=== PATIENT | female | born 1990 | race Two or more races ===

== ENCOUNTER 2021-12-07 13:38 | Inpatient (IN) | payer BC, SELFPAY ==
[2021-12-07] VITALS (46 sets, daily range): BP systolic 92–124; BP diastolic 55–101; PULSE 48–74; RESP 16–20; TEMP 35.7–36.8; O2SAT 96–100; BMI 36.6
--- NOTE | 2021-12-07 11:05 | P.PNAN_ITS ---
Anes - Initial Pre Proc Eval Procedure: Operation Date: 12/07/21 07:30 Proposed Procedures p Repeat Section - Daniela Botello MD Date/Time: 12/07/21 11:05 Surgeon: Daniela Botello MD Pre Op Diagnosis: C/S Patient Data Age: 31 Gender: F Height: Weight: Allergies Allergy/AdvReac Type Severity Reaction Status Date / Time clindamycin Allergy Hives Verified 11/03/21 12:41 Home Medications Medication Instructions Recorded Confirmed Type PNV cmb#95-ferrous fumarate-FA 1 tablet PO DAILY 11/03/21 11/03/21 History [] Patient hx anesthesia problems: none Family hx anesthesia problems: none Results Review: All pre-operative results and documents have been reviewed as part of the pre-operative evaluation. [facility] Family History Family History Sibling Autism Mother Diabetes mellitus Social History Social History Smoking status: Never smoker Substance use: never Spiritual care concerns: No Anes - Eval Final PreProcedure Day of Procedure 12/07/21 11:05 Patient weight: normal Heart: regular rate and rhythm Lungs: clear to auscultation and normal air movement Airway: Mallampati scale class II Neurological: alert and oriented Last oral intake: >/= 8 hours ASA classification: II Emergent: no Anesthetic plan: proceed Anesthesia type and monitoring: regional spinal and standard monitoring Results Review: All pre-operative results and documents have been reviewed as part of the pre-operative evaluation. Informed Consent: The patient's anesthetic plan and its attendant risks and benefits were discussed with the patient/family/POA. Questions were solicited and answers provided to the satisfaction of the patient/family/POA.
--- OUTSIDE RECORDS SUMMARY | 2021-12-07 13:48 | XMS_ITS | Encounter Summary ---
:1990 Author Care Team Providers Name Role Phone Daniela Botello MD Primary Care Provider [phone] Reason for Visit OB visit Assessment and Plan 1. Routine care Discussion Note: None recorded.Patient educational handouts: No information available. Plan of Care Reminders Provider Appointments Well on or around Dolores nelson, [facility] 06/19/2022 CNM Lab None ? ? recorded. Referral None ? ? recorded. Procedures None ? ? recorded. Surgeries None ? ? recorded. Imaging None ? ? recorded. Medications Name Start Date ? ? ? Medications Administered None recorded. Vitals Height Weight BMI Blood Pressure 5 ft 5 in 202 lbs 33.6 kg/m2 121/67 mm[Hg] Results Lab Results None recorded. Allergies Code Code System Name Reaction Severity Onset 7582 RxNorm Clindamycin ? ? ? Problems Name Status Onset Date Source ? Active 08/07/2021 ? Sickle Cell Trait Active ? ? Ultrasound Scan Abnormal Active ? ? History of Section Active ? ? Procedures Date Name
--- OUTSIDE RECORDS SUMMARY | 2021-12-07 13:48 | XMS_ITS | Encounter Summary ---
:1990 Author Care Team Providers Name Role Phone Daniela Botello MD Primary Care Provider [phone] Reason for Visit OB visit 38w3d Assessment and Plan 1. Routine care Discussion [...] BMI Blood Pressure 5 ft 5 in 217 lbs 36.1 kg/m2 122/74 mm[Hg] Results Lab Results None recorded. Allergies Code Code System Name Reaction Severity Onset 2581 RxNorm Clindamycin ? ? ? Problems Name Status Onset Date Source ? Active 08/07/2021 ? Sickle Cell Trait Active ? ? Ultrasound Scan Abnormal Active ? ? History of Section Active ? ? Procedures
--- OUTSIDE RECORDS SUMMARY | 2021-12-07 13:48 | XMS_ITS | Encounter Summary ---
:1990 Author Care Team Providers Name Role Phone Daniela Botello MD Primary Care Provider [phone] Reason for Visit None recorded. Assessment and Plan 1. condition affecting obs tetrical care of mother ? US, obstetric, follow-up 2. Gestation period, 27 weeks Discussion Note: None recorded.Patient educational handouts: No information available. Plan of Care Reminders Provider Appointments Well on or around Dolores nelson CNM [facility] 06/19/2022 Lab None ? ? recorded. Referral None ? ? recorded. Procedures None ? ? recorded. Surgeries None ? ? recorded. Imaging US, 09/07/2021 [place] [facility], Follow-up Medications Name Start Date ? ? ? Medications Administered None recorded. Vitals None recorded. Results Lab Results None recorded. Allergies Code Code System Name Reaction Severity Onset 5564 RxNorm Clindamycin ? ? ? Problems Name Status Onset Date Source ? Active 08/07/2021 ? Sickle Cell Trait Active ? ? Ultrasound Scan Abnormal Active ? ? History of Section
--- OUTSIDE RECORDS SUMMARY | 2021-12-07 13:48 | XMS_ITS | Encounter Summary ---
:1990 Author Care Team Providers Name Role Phone Daniela Botello MD Primary Care Provider [phone] Reason for Visit OB visit Assessment and Plan 1. History of section 2. Routine care Discussion Note: None recorded.Patient educational [...] BMI Blood Pressure 5 ft 5 in 213 lbs 35.4 kg/m2 117/66 mm[Hg] Results Lab Results None recorded. Allergies Code Code System Name Reaction Severity Onset 2581 RxNorm Clindamycin ? ? ? Problems Name Status Onset Date Source ? Active 08/07/2021 ? Sickle Cell Trait Active ? ? Ultrasound Scan Abnormal Active ? ? History of Section Active ? ?
--- OUTSIDE RECORDS SUMMARY | 2021-12-07 13:48 | XMS_ITS | Encounter Summary ---
:1990 Author Care Team Providers Name Role Phone Daniela Botello MD Primary Care Provider [phone] Reason for Visit None recorded. Assessment and Plan 1. condition affecting obs tetrical care of mother ? US, obstetric, follow-up Discussion Note: None recorded.Patient educational handouts: No information available. Plan of Care Reminders Provider Appointments Well on or around Dolores nelson CNM [facility] 06/19/2022 Lab None ? ? recorded. Referral None ? ? recorded. Procedures None ? ? recorded. Surgeries None ? ? recorded. Imaging US, 11/22/2021 [place] [facility], Follow-up Medications Name Start Date ? ? ? Medications Administered None recorded. Vitals None recorded. Results Lab Results None recorded. Allergies Code Code System Name Reaction Severity Onset 2582 RxNorm Clindamycin ? ? ? Problems Name Status Onset Date Source ? Active 08/07/2021 ? Sickle Cell Trait Active ? ? Ultrasound Scan Abnormal Active ? ? History of Section Active ? ? Procedures
--- OUTSIDE RECORDS SUMMARY | 2021-12-07 13:48 | XMS_ITS | Encounter Summary ---
:1990 Author Care Team Providers Name Role Phone Daniela Botello MD Primary Care Provider [phone] Reason for Visit OB visit OB [id number] EDC 12/03/2021 LMP 02/26/21 Assessment and Plan Assessment Note Patient is _33__weeks . Dis cussed plan. 1. Routine care Discussion Note: None recorded.Patient educational handouts: No information available. Plan of Care Reminders Provider Appointments Well on or around Dolores Yessica nelson [facility] 06/19/2022 CNM Lab None ? ? recorded. Referral None ? ? recorded. Procedures None ? ? recorded. Surgeries None ? ? recorded. Imaging None ? ? recorded. Medications Name Start Date ? ? ? Medications Administered None recorded. Vitals Height Weight BMI Blood Pressure 5 ft 5 in 207 lbs 34.4 kg/m2 123/73 mm[Hg] Results Lab Results None recorded. Allergies Code Code System Name Reaction Severity Onset 5059 RxNorm Clindamycin ? ? ? Problems Name Status Onset Date Source ? Active 08/07/2021 ? Sickle Cell Trait Active ?
[2021-12-07] MEDS: LACTATED RINGERS 250 ML 999 ML IVPB (14:50)
--- NOTE | 2021-12-07 14:53 | LDADM ---
This patient, Shelly Chu, was admitted to Labor/Delivery/Recovery 119 on 12/07/21 at 13:38. Plans for labor, pain management and were discussed with patient. Patient/family oriented to hospital policies and general routines including ID bracelet, bed and alarms, visiting hours, pain management, procedures, bathroom and other care routines, personal items, smoking policy, room service/diet and guest tray routines, infant security routines, and visiting hours. Patient/Family are encouraged to report perceived risks to care and to ask questions if they do not understand what they are told or what they should do. See OBIX for further documentation.
[2021-12-07 14:57] LABS: Basophils Percent Auto 0.2 % (0.2-1.2); Eosinophils Absolute Auto 0.1 K/mm3 (0-0.3); Eosinophils Percent Auto 0.9 % (0-4.4); Hematocrit 38.3 % (37.0-47.0); Hemoglobin 12.9 g/dL (12.0-15.0); Immature Granulocyte Absolute 0.08 K/mm3 (0.00-0.031); Immature Granulocyte Percent A 0.9 % (0-0.5); Lymphocytes Absolute Auto 1.68 K/mm3 (0.9-3.2); Lymphocytes Percent Auto 18.3 % (18.3-44.2); Mean Corpuscular HGB Conc 33.7 g/dl (32-36); Mean Corpuscular Hemoglobin 26.8 pg (26-34); Mean Corpuscular Volume 79.5 fl (80-100); Mean Platelet Volume 10.8 fl (7.4-10.4); Monocytes Absolute Auto 0.5 K/mm3 (0.1-0.6); Monocytes Percent Auto 5.7 % (2.6-8.5); Neutrophils Absolute Auto 6.8 K/mm3 (1.3-6.7); Platelet Count Result 232 k/mm3 (150-375); Red Blood Count 4.82 M/mm3 (4.2-5.4); Red Cell Distribution Width 13.6 % (11.5-14.5); White Blood Count 9.2 K/mm3 (4.5-10.0)
--- NOTE | 2021-12-07 16:05 | PM.IMHP ---
H&P: HPI History of Present Illness Date/Time: 12/07/21 16:05 Chief Complaint: R CS Narrative: Shelly is a 31yo at 40.4 for repeat CS. had wanted to TOLAC but cervix unfavorable still. complicated only by EIF present and pt carries sickle cell trait. Review of Systems Review of Systems: All systems reviewed & are unremarkable except as noted in HPI and below PMFSH Family History Family History Sibling Autism Mother Diabetes mellitus Social History Social History Smoking status: Never smoker Substance use: never Spiritual care concerns: No Meds Home Medications and Allergies Home Medications Medication Instructions Recorded Confirmed Type PNV cmb#95-ferrous fumarate-FA 1 tablet PO DAILY 11/03/21 11/03/21 History [] Allergies Allergy/AdvReac Type Severity Reaction Status Date / Time clindamycin Allergy Hives Verified 11/03/21 12:41 Vital Signs Vital Signs - 24 hr 12/07/21 14:50 12/07/21 15:01 Temperature 98.3 F Pulse Rate 69 Respiratory Rate 20 Blood Pressure 115/56 L Exam Const: General: no acute distress Resp: Effort & Inspection: normal respiratory effort Auscultation: clear to auscultation bilaterally Cardio: Rate: regular rate Rhythm: regular rhythm GI: GI Palp: Yes Soft to palpation Extrem: General: normal to inspection H&P: Results Labs Labs: Short CBC 12/07/21 Range/Units 14:49 WBC 9.2 (4.5-10.0) K/mm3 Hgb 12.9 (12.0-15.0) g/dL Hct 38.3 (37.0-47.0) % Plt Count 232 (150-375) k/mm3 Assessment and Plan Assessment and plan (1) History of delivery: Code(s): Z98.891 - History of uterine scar from previous surgery Status: Acute Additional Plan Plan Repeat CS Discussed RBA, pt consented, all questions answered. will proceed.
--- NOTE | 2021-12-07 16:07 | WPDHPUPDATE1 ---
History and Physical Update Update Date/Time: 12/07/21 16:07 History and Physical has been reviewed, including an updated exam of the patient. There are NO changes in the patient's condition. Risks, benefits, and alternatives have been discussed and questions answered. Patient agrees to proceed with procedure.
[2021-12-07] MEDS: ceFAZolin 2 GM/D5W 50 ML 2 GM/50 ML BAG IVPB (16:27)
--- NOTE | 2021-12-07 17:20 | PM.OBPRVD ---
OB - Delivery Note Procedure Delivery date: 12/07/21 Procedure: Procedures Operation Date: 12/07/21 07:30 <No data on this case meets the specified criteria> repeat low transverse section events: Previous Intrapartal events: None Route of delivery: Specimen: Yes (placenta) Quantitative Blood Loss (ml): 620 Anesthesia type: Spinal Disposition: floor Complications: none Narrative: The patient was taken to the OR and received spinal anesthesia. She was placed in dorsal supine position with left lateral tilt. SCDs and ramírez were placed. She was prepped and draped in the normal sterile fashion. A Pfannensteil skin incision was made and carried through to the underlying layer of fascia. The fascia was incised in the midline and then extended laterally using Ulloa scissors. The muscles were in the midline and the peritoneum was entered bluntly. The peritoneal incision was extended inferiorly and superiorly with care to avoid the bladder. The bladder blade was then inserted, the vesicouterine peritoneum was grasped, incised with Metzenbaum scissors, and a bladder flap created. The bladder blade was reinserted. A low transverse uterine incision was made with a scalpel and extended bluntly. AROM was performed and fluid was noted to be clear. The head was not delivered easily, so a Kiwi vacuum was utilized and the uterine incision and fasical incision were extended with bandage scissors. The head was then delivered easily, followed by the remainder of the baby. The baby's oropharynx was suctioned. After 30 seconds, the cord was clamped and cut and the infant was handed off. Cord blood was obtained and the placenta was then removed manually. The uterus was unable to be exteriorized. A moist lap sponge was used to curette the endometrium. The uterine incision was then closed with one layer of 0-Vicryl in a running, locking fashion. Good hemostasis was noted. The posterior cul de sac was irrigated with normal saline and cleared of all clot and debris. The uterus was returned to the abdomen. Both lateral gutters were then irrigated. The rectus muscles were inspected and found to be hemostatic. The fascia was reapproximated using 0-Vicryl in running fashion. The subcutaneous tissue was irrigated with normal saline and made hemostatic with Bovie electrocautery. The skin was then closed with absorbable lisa. Steri strips and a bandage were applied. The uterus was evacuated. The patient tolerated the procedure very well. All counts were correct. She was taken to the recovery room in good condition. Baby Date of : 12/07/21 Time of : 16:44 Weeks of gestation at delivery: 40 Infant gender: Male Weight (pounds): 7 Weight (ounces): 2 presentation: vertex Placenta delivery description: Manual Removal cord vessel description: 3 Vessels score one minute: 9 score five minutes: 9
[2021-12-07] MEDS: OXYTOCIN 30 UNITS/NS 500 ML 30 UNITS/500 ML BAG 125 UNITS IV CONT (17:36)
[2021-12-07] MEDS: KETOROLAC 30 MG/ML VIAL (*BKC) IV PUSH (17:45)
--- NOTE | 2021-12-07 18:01 | SUR.PHASEI ---
Report given to Navin RUSSELL who is taking over recovery care.
[2021-12-07] MEDS: DEXTROSE 5%/0.45% SOD CHL 1,000 ML 125 ML IV CONT (22:01)
[2021-12-08] VITALS: BP 108/74; PULSE 62; RESP 18; TEMP 35.8; O2SAT 100
[2021-12-08] MEDS: IBUPROFEN 600 MG TABLET PO ×4 (00:21→23:05)
[2021-12-08 04:00] VITALS: BP 104/58; PULSE 68; RESP 18; TEMP 36; O2SAT 99
[2021-12-08 05:52] LABS: Basophils Percent Auto 0.3 % (0.2-1.2); Eosinophils Absolute Auto 0.1 K/mm3 (0-0.3); Eosinophils Percent Auto 0.7 % (0-4.4); Hematocrit 34.1 % (37.0-47.0); Hemoglobin 11.4 g/dL (12.0-15.0); Immature Granulocyte Absolute 0.08 K/mm3 (0.00-0.031); Immature Granulocyte Percent A 0.7 % (0-0.5); Lymphocytes Absolute Auto 1.29 K/mm3 (0.9-3.2); Lymphocytes Percent Auto 11.6 % (18.3-44.2); Mean Corpuscular HGB Conc 33.4 g/dl (32-36); Mean Corpuscular Volume 80.6 fl (80-100); Mean Platelet Volume 11.5 fl (7.4-10.4); Monocytes Absolute Auto 0.7 K/mm3 (0.1-0.6); Monocytes Percent Auto 6.4 % (2.6-8.5); Neutrophils Percent Auto 80.3 % (45.5-73.1); Platelet Count Result 187 k/mm3 (150-375); Red Blood Count 4.23 M/mm3 (4.2-5.4); Red Cell Distribution Width 13.6 % (11.5-14.5); White Blood Count 11.1 K/mm3 (4.5-10.0)
[2021-12-08 08:00] VITALS: BP 115/78; PULSE 78; RESP 18; TEMP 36.1
[2021-12-08] MEDS: MULTIVIT/MIN/PREN/FOL AC/IRON TABLET 1 TAB PO (08:14)
[2021-12-08] MEDS: SIMETHICONE 80 MG TAB.CHEW PO ×4 (08:14→23:00)
[2021-12-08] MEDS: DOCUSATE SODIUM 100 MG CAPSULE PO ×2 (08:14→17:48)
--- NOTE | 2021-12-08 09:05 | P.PNOB_ITS ---
OB - PN: Subj Subjective Date/time seen: 12/08/21 09:05 Patient comments: no complaints baby status: doing well Narrative: POD 1 from primary CS. Doing well. Normal lochia. Eating, ambulating, ramírez out. OB - PN: Obj Data Labs CBC & Chem 7: 12/08/21 03:41 Labs: Laboratory Results - last 24 hr 12/07/21 12/07/21 12/08/21 14:49 14:49 03:41 WBC 9.2 11.1 H RBC 4.82 4.23 Hgb 12.9 11.4 L Hct 38.3 34.1 L MCV 79.5 L 80.6 MCH 26.8 27.0 MCHC 33.7 33.4 RDW 13.6 13.6 Plt Count 232 187 MPV 10.8 H 11.5 H Immature Gran % (Auto) 0.9 H 0.7 H Neut % (Auto) 74.0 H 80.3 H Lymph % (Auto) 18.3 11.6 L [place] % (Auto) 5.7 6.4 Eos % (Auto) 0.9 0.7 Baso % (Auto) 0.2 0.3 Lymph # (Auto) 1.68 1.29 [place] # (Auto) 0.5 0.7 H Eos # (Auto) 0.1 0.1 Baso # (Auto) 0.0 0.0 Abs Immat Gran (auto) 0.08 H 0.08 H Absolute Neuts (auto) 6.8 H 9.0 H Absolute Nucleated RBC 0.0 0.0 Nucleated RBC % 0.0 0.0 Blood Type A Positive Antibody Screen Negative OB - PN A/P Assessment and Plan (1) delivery delivered: Code(s): O82 - Encounter for delivery without indication Status: Acute Plan day: 1 Plan: routine care Time Spent With Patient Time: Total time spent is greater than 50% in coordination of care (as do cumented) at patient's floor/unit and/or counseling patient: Exam Narrative: NAD abdomen soft, appropriately tender, incision bandaged Extremities nontender with 1+ edema
--- NOTE | 2021-12-08 10:33 | WPDANLDPN2 ---
Anes-Prog Note L&D Date/Time: 12/08/21 10:33 Comfortable throughout: section Neuraxial method: spinal Epidural/Spinal procedure site: clean & non-tender Neuro status: Neuro function grossly intact. Cardiovascular status: normal Respiratory status: normal Airway patency: baseline Mental status: baseline Post-Op hydration status: normal Vital Signs: Last Vital Signs Temp 36.1 C L 12/08/21 08:00 Pulse 78 12/08/21 08:00 Resp 18 12/08/21 08:00 BP 115/78 12/08/21 08:00 Pulse Ox 99 12/08/21 04:00 Pain score (VAS): 12/03 I/O: Intake & Output 12/07/21 12/08/21 12/08/21 23:59 07:59 15:59 Intake Total 1600 500 Output Total 800 2050 400 Balance -800 -450 100 Post-procedural complaints: none Patient feedback: Patient satisfied with anesthetic care.
--- NOTE | 2021-12-08 10:33 | WPDANLDNPN2 ---
Anes-Prog Note L&D-Neuraxial Date/Time: 12/08/21 10:33 Neuraxial medications: intrathecal PF morphine Opiod-related complaints: none Patient feedback: Patient satisfied with post-operative pain management.
[2021-12-08 12:00] VITALS: BP 110/60; PULSE 72; RESP 20; TEMP 36.8
[2021-12-08] MEDS: HYDROcodone/acetaminophen (*CRX) 5-325 MG TABLET 1 TAB PO ×2 (12:19→17:46)
[2021-12-08 16:00] VITALS: BP 127/66; PULSE 83; RESP 18; TEMP 36.6
[2021-12-08 19:00] VITALS: BP 118/62; PULSE 84; RESP 18; TEMP 36.6
[2021-12-08] MEDS: HYDROcodone/acetaminophen (*CRX) 10-325 MG TABLET 1 TAB PO (23:06)
[2021-12-09] MEDS: HYDROcodone/acetaminophen (*CRX) 10-325 MG TABLET 1 TAB PO (05:32)
[2021-12-09] MEDS: IBUPROFEN 600 MG TABLET PO ×2 (05:32→13:14)
[2021-12-09 08:00] VITALS: BP 110/66; BP 116/66; PULSE 88; RESP 18; TEMP 36.4
--- NOTE | 2021-12-09 08:54 | PM.OBPNVD ---
OB - PN: Subj Subjective Date/time seen: 12/09/21 08:54 Patient comments: no complaints and incisional pain feeding status: breast and bottle feeding Narrative: pain a little worse than yesterday OB - PN: Obj Data Labs CBC & Chem 7: 12/08/21 03:41 OB - PN A/P Assessment and Plan (1) delivery delivered: Code(s): O82 - Encounter for delivery without indication Status: Acute Time Spent With Patient Time: Total time spent is greater than 50% in coordination of care (as documented) at patient's floor/unit and/or counseling patient: Exam Narrative: NAD abdomen soft, appropriately tender, incision CDI Extremities nontender with 1+ edema
[2021-12-09] MEDS: SIMETHICONE 80 MG TAB.CHEW PO ×3 (09:30→16:09)
[2021-12-09] MEDS: DOCUSATE SODIUM 100 MG CAPSULE PO ×2 (09:30→16:09)
[2021-12-09] MEDS: MULTIVIT/MIN/PREN/FOL AC/IRON TABLET 1 TAB PO (09:30)
[2021-12-09] MEDS: HYDROcodone/acetaminophen (*CRX) 5-325 MG TABLET 1 TAB PO ×2 (13:15→16:09)
[2021-12-09 20:00] VITALS: BP 137/79; PULSE 76; RESP 18; TEMP 36.1; O2SAT 100
[2021-12-10] MEDS: HYDROcodone/acetaminophen (*CRX) 5-325 MG TABLET 1 TAB PO ×2 (05:35→08:38)
[2021-12-10] MEDS: IBUPROFEN 600 MG TABLET PO (05:36)
--- NOTE | 2021-12-10 07:39 | P.PNOB_ITS ---
OB - PN: Subj Subjective Date/time seen: 12/10/21 07:39 Patient comments: no complaints and pain well controlled baby status: doing well [place] feeding status: pumping and bottle feeding Narrative: Ready for DC home except working with . OB - PN: Obj Data Labs CBC & Chem 7: 12/08/21 03:41 OB - PN A/P Assessment and Plan (1) delivery delivered: Code(s): O82 - Encounter for delivery without indication Status: Acute Plan Plan: routine care and discharge home Comments: DC instructions given. Time Spent With Patient Time: Total time spent is greater than 50% in coordination of care (as documented) at patient's floor/unit and/or counseling patient: Exam Narrative: NAD abdomen soft, appropriately tender, incision CDI Extremities nontender with 1+ edema
--- NOTE | 2021-12-10 07:44 | P.DS_ITS ---
DS: Admitting Diagnosis Discharge Date 12/10/21 Admitting Diagnosis term IUP, prior CS DS: Discharge Diagnosis Discharge Diagnosis (1) delivery delivered: Code(s): O82 - Encounter for delivery without indication Status: Acute DS: Summary Hospital Course Hospital Course: Shelly had an uncomplicated repeat CS and course. She was DCed home on POD #3. Time Spent with Patient Time attestation: Total time spent providing and/or coordinating discharge services: Exam Narrative: NAD abdomen soft, appropriately tender, incision CDI Discharge Plan Discharge Attending physician on discharge: Daniela Botello Discharging Clinician: Daniela Botello Anticipated Discharge Date/Time: 12/10/21 07:40 Patient Disposition: Home, Self-Care Activity: may shower, may drive after 2 weeks and pelvic rest Diet: as tolerated Patient Instructions: Antibiotic Form Stand Alone Forms: General Discharge Information Follow-up/Referrals: Daniela Botello MD [Physician] - 1 Week Discharge Medications: New hydrocodone-acetaminophen 5-325 mg Tablet 1 tablet PO Q4-5H PRN (Reason: Moderate Pain (4-6)) Qty: 40 RF: 0 ibuprofen 600 mg Tablet 600 mg PO Q6H PRN (Reason: Cramping) Qty: 60 RF: 0 docusate sodium 100 mg Capsule 100 mg PO BID PRN (Reason: constipation) Qty: 60 RF: 0 Continued PNV cmb#95-ferrous fumarate-FA [] 28 mg iron- 800 mcg Tablet 1 tablet PO DAILY RF: 0 Date of admission: 12/07/21 13:38 Primary Care Provider: PHYSICIAN,C JAVA DEVELOPER Admitting Provider: Daniela Botello Attending physician on admission: Daniela Botello Condition: Stable
[2021-12-10 08:25] VITALS: BP 109/62; PULSE 74; RESP 16; TEMP 36.8; O2SAT 97
[2021-12-10] MEDS: DOCUSATE SODIUM 100 MG CAPSULE PO (08:38)
[2021-12-10] MEDS: MULTIVIT/MIN/PREN/FOL AC/IRON TABLET 1 TAB PO (08:38)
--- NOTE | 2021-12-10 09:40 | PC.NURSE ---
Patient viewed the discharge video Mother & Baby Care, The First Two Weeks . Patient was given the opportunity and encouraged to ask questions. Patient verbalized understanding of information shared and has been given the mother/baby guide for home reference.
--- NOTE | 2021-12-10 10:47 | PC.NURSE ---
0800 - Consulted with patient, reviewed infant feeding cues, frequencies, duration of feedings, feeding elimination flow sheet, and signs of adequate intake. Demonstrated stimulation techniques to wake for feeding. Assisted with to breast. Reviewed positioning/alignment, holding breast and asymmetrical latch on. was unable to latch correctly. Reviewed signs of a correct latch, effective nursing and suck swallow ratio. was unable to maintain latch without discomfort to mother. Nipple care reviewed. Skin to skin with parents encouraged. Breast pump provided by another RN due to ineffective /latch. Reviewed instructions given on breast pump care and usage, pumping schedule (every 3 hours), nipple care (wide 140 degrees) latching, and collection and storage of breast milk. Hand expression and latch demonstrated with tools and handouts. Mom encouraged to utilize [id number], nipple stroking, nipple stretching, breast massage and hand expression to stimulate supply. Pumping schedule reviewed and logged on feeding sheet. Assessed patient for correct flange size, placement and draw. Patient verbalizes and demonstrates understanding of instructions. Instructed mother to call out for RN assistance if she is unable to latch for feeding or she has discomfort with nursing. Discussed feeding should be initiated with feeding cues or visualized or two to three hours from start of last feeding. No effective related to either not showing feeding cues or opening with shallow gape. Mother plans to feed her the 40cc of human milk that she previously pumped. has had 6 formula feedings in the past 24 hours, and is currently meeting outcomes for weight, output, jaundice and feeding frequencies. Mother states she feels confident to continue feeding infant at home. Reviewed transition to breast milk, signs of adequate intake, and engorgement/relief. Instructed to call ICP if intake/output less than required. Reviewed regular medications mother is taking. Information provided per Patricia. Reviewed community resources on the [facility] website and in the Mom/Baby guide. Information on outpatient services provided. Mother has no further questions at this time. Mother voiced understanding of information shared. Reported to primary RN.
[2021-12-10 11:59] LABS: Rapid Plasma Reagin Non-Reactive (NonReactive)
[2021-12-11 10:22] VITALS: BP 134/79; PULSE 85; RESP 20; TEMP 37.4; O2SAT 99
== END 2021-12-10 12:36 | disposition home or self-care (01) | DRG 788 ==
LOC: ANHLDR 13:46 → ANHOB2 21:06
PROVIDERS: Admitting Provider Obstetrics & Gynecology; Visit Provider Obstetrics & Gynecology
PROC: 10D00Z1 Extraction of Products of Conception, Low, Open Approach (ICD-10-PCS; CPT 59514; principal; 2021-12-07 07:30)
DX: O34.219 Maternal care for unspecified type scar from previous cesarean delivery (principal); O99.02 Anemia complicating childbirth; D57.3 Sickle-cell trait; Z3A.40 40 weeks gestation of pregnancy; Z37.0 Single live birth
CPT/HCPCS: 36415; 85025; 86592; 86850; 86900; 86901; A9270; J0131; J0690; J1885; J2274; J2370; J2405; J2590; J2704; J7120

== ENCOUNTER 2021-12-25 11:45 | Outpatient (RCR) | payer BC, SELFPAY ==
--- NOTE | 2021-12-25 14:51 | PC.NURSE ---
1020 - 1200 Pt here for OP appt. with her Arnaud Chu. Reviewed introductions and mother led the discussion of her experience with feeding her baby so far. Mother still holds desire to latch infant to breast. Reviewed handwashing to prevent infection before and after taking care of her baby. Mother verbalizes she is unable to independently latch infant. Baby has been bottle fed for the first 2 weeks of life and has a pacifier in his mouth at this time. Reviewed how to watch for early feeding cues, place skin to skin, then feeding baby when infant is ready or every 2-3 hours as discussed yesterday on the phone. Reviewed positioning/alignment. Encouraged mother with to the left breast in football position using nipple to nose and encouraging asymmetrical 140-degree latch. shows feeding cues while skin to skin, then screams when placed in a football position for attempting to breastfeed. Reviewed effective latching with resources visual handout. Mother voiced understanding to feed infant when she sees feeding cues, 8-12 times in 24 hours approximately every 2-3 hours from the start of the last feeding or she has discomfort with nursing. Reinforced working with infant on latching with the early feeding signs and not waiting for the crying feeding cues since it is the late cue. Mother reports infant has had 6 wets and at least 4 stools that are yellow and seedy in the last 24 hours. Infant moves tongue freely past gum ridge, lips flange easily. Infant opens mouth with small gape and tongue is up. Mother works well with baby but baby arches his back and cries loudly at attempts to breastfeed. Mom bottle feeds human milk that has been pumped out earlier and baby eagerly drinks. Mother feeds 2-3 oz about every 2-3 hours. Baby is not content after most feedings reports mother. Discussed that is in a feeding pattern that may not be able to be corrected or possibly with great efforts over time could possibly correct and the plan to increase feedings with a 1/4 of an oz at a time to meet the needs of infant. With opening mouth with a small gape for bottle and pacifier mother urged not to allow baby to pull back and latch on the nipple. Weight is good today. Mom states is unsettled after most feedings. Discussed frequency and volume with mom pumping breast. Jaundice is visualized without lethargy. Dr. Kraft's office called and appt made to visit [facility] today to assess .Reported to primary RN.
== END 2022-03-25 23:59 | disposition home or self-care (01) ==
LOC: ANHOBOP 11:45
PROVIDERS: Visit Provider Pediatrics
DX: Z39.1 Encounter for care and examination of lactating mother (principal)
CPT/HCPCS: 99213; G0463